=== PATIENT | female | born 1960 | race Hispanic/Latino ===

== ENCOUNTER → 2018-01-15 | Outpatient (CLI) | payer MEDICARE ==
[~2018-01-15] VITALS: Ht 165.1 cm; Wt 90.7 kg
[~2018-01-15] MED LIST: REGADENOSON 0.4 MG/5 ML PF SYG IVP SCH
== END | disposition home or self-care (01) ==
LOC: SHCH 08:09
PROVIDERS: ATTEND Internal Medicine Cardiovascular Disease
DX: I25.119 Atherosclerotic heart disease of native coronary artery with unspecified angina pectoris (principal)
CPT/HCPCS: 78452; 93017; 96374; A9500 ×2; J2785

== ENCOUNTER 2018-04-25 07:05 | Observation (INO) | payer MEDICARE ==
[2018-04-24 16:58] LABS: BASOPHILS % (AUTO) 0.3 % (0.0-5.0); EOSINOPHILS % (AUTO) 1.8 % (0.0-8.0); HEMATOCRIT 36.6 % (36-48); LYMPHOCYTES % (AUTO) 12.7 % (21.0-51.0); MEAN CORPUSCULAR HEMOGLOBIN 35.7 pg (27.0-33.0); MEAN CORPUSCULAR HGB CONC 32.9 g/dL (32.0-36.0); MEAN CORPUSCULAR VOLUME 108.5 fL (79-99); MONOCYTES % (AUTO) 4.8 % (3.0-13.0); NEUTROPHILS % (AUTO) 80.4 % (40.0-77.0); NUCLEATED RED BLOOD CELLS 0.1 % (0.0-0.19); PLATELET COUNT (AUTO) 126 K/uL (130-400); RED BLOOD CELL COUNT(AUTO) 3.38 MIL/uL (4.00-5.50); RED CELL DISTRIBUTION WIDTH 15.3 % (11.0-15.5); WHITE BLOOD COUNT (AUTO) 8.2 K/uL (4.8-10.8)
[2018-04-24 17:10] LABS: CREATININE 5.4 mg/dL (0.5-1.5); POTASSIUM 4.3 mmol/L (3.5-5.1)
[2018-04-24 17:13] LABS: INR 1.17 (0.85-1.15); PROTHROMBIN TIME 12.2 SEC (9.6-11.6)
[~2018-04-25] VITALS: Ht 160 cm; Wt 91.4 kg
[2018-04-25] VITALS (12 sets, daily range): BP systolic 90–126; BP diastolic 50–88
[~2018-04-25 07:05] MED LIST changes: +ALLO100T PO; +ASPI-1012 PO; +BIOT5000 PO; +CETI-101 PO; +CHOL500050 PO; +CINA30 PO; +DICY20TA11 PO; +DOCU50CA13 PO; +ENAL20TA PO; +ESOM40CA54 PO; +FOLI0.4T2 PO; +FOLI1TAB85 PO; +HYDR-4060 PO; +LEVE500T19 PO; +LEVE750T10 PO; +METO-391 PO; +PRED1TAB PO; -REGADENOSON 0.4 MG/5 ML PF SYG IVP SCH; +ROSU5TAB11 PO; +SERT50TA12 PO; +SEVE800T7 PO; +SODIUM CHLORIDE 0.9% 500ML 500 ML IV SCH; +WARF4TAB72 PO
[2018-04-25] MEDS ORDERED: SODIUM CHLORIDE 0.9% 1000ML 1,000 ML IV ONE (08:48)
[2018-04-25] MEDS ORDERED: ACETAMINOPHEN 325 MG TAB ONE (08:56)
[2018-04-25] MEDS ORDERED: ACETAMINOPHEN 325 MG TAB PO SCH (09:00)
[2018-04-25] MEDS ORDERED: IOHEXOL-350 50ML VIAL IV ONE (09:31)
[2018-04-25] MEDS ORDERED: NITROGLYCERIN 5 MG/ML 10 ML VIAL IV ONE (09:31)
[2018-04-25] MEDS ORDERED: IOHEXOL 350 MG/ML 100ML INFUS..BTL IV ONE ×2 (09:31→10:48)
[2018-04-25] MEDS ORDERED: SODIUM BICARB 50MEQ 50ML VIAL ONE (09:31)
[2018-04-25] MEDS ORDERED: LIDOCAINE HCL-MPF 2% 5ML VIAL ONE (09:31)
[2018-04-25] MEDS ORDERED: HEPARIN SODIUM 1000UNIT/ML 10ML VIAL ONE (09:32)
[2018-04-25] MEDS ORDERED: MEPERIDINE-PF 25 MG/ML SYG ONE ×2 (10:24→10:31)
[2018-04-25] MEDS ORDERED: MIDAZOLAM HCL 1 MG/ML 2ML VIAL ONE ×2 (10:24→10:30)
[2018-04-25] MEDS ORDERED: ASPIRIN 325MG EC TAB 325 MG TABLET.DR PO ONE (11:07)
[2018-04-25] MEDS ORDERED: CLOPIDOGREL BISULFATE 300 MG TAB ONE (11:07)
[2018-04-25] MEDS ORDERED: HYDROCODONE/ACETAMINOPHEN 5/325 MG TAB PO PRN (11:30)
[2018-04-25] MEDS ORDERED: TEMAZEPAM 30 MG CAP PO PRN (11:30)
[2018-04-25] MEDS ORDERED: CETIRIZINE HCL 5 MG TABLET PO PRN (11:30)
[2018-04-25] MEDS ORDERED: DICYCLOMINE HCL 20 MG TAB PO PRN (11:30)
[2018-04-25] MEDS ORDERED: ACETAMINOPHEN-CODEINE 300/30MG TAB PO PRN ×2 (11:30)
[2018-04-25] MEDS ORDERED: ONDANSETRON HCL 4 MG/2 ML VIAL IVP PRN (11:30)
[2018-04-25] MEDS ORDERED: CLOP75TA14 PO (11:40)
[2018-04-25] MEDS: SEVELAMER HCL 800 MG TABLET PO SCH ×2 (12:00→16:28)
[2018-04-25] MEDS ORDERED: LEVETIRACETAM 500 MG TABLET PO SCH (13:30)
[2018-04-25] MEDS ORDERED: CLOPIDOGREL BISULFATE 300 MG TAB PO SCH (13:30)
[2018-04-25] MEDS ORDERED: WARFARIN SODIUM 10 MG TABLET PO SCH (13:30)
[2018-04-25] MEDS: METOPROLOL TARTRATE 50 MG TAB PO SCH (21:00)
[2018-04-25] MEDS ORDERED: CINACALCET HCL 30 MG TAB PO SCH (21:00)
[2018-04-25] MEDS ORDERED: PREDNISONE 1 MG TAB PO SCH (21:00)
[2018-04-25] MEDS ORDERED: SERTRALINE HCL 50 MG TABLET PO SCH (21:00)
[2018-04-25] MEDS: DOCUSATE SODIUM 100 MG CAP PO SCH (21:40)
[2018-04-25] MEDS: ENALAPRIL MALEATE 10 MG TABLET PO SCH (21:41)
[2018-04-26 04:00] VITALS: BP 131/78
[2018-04-26 04:23] LABS: HEMATOCRIT 29.7 % (36-48); MEAN CORPUSCULAR HEMOGLOBIN 36.7 pg (27.0-33.0); MEAN CORPUSCULAR HGB CONC 33.7 g/dL (32.0-36.0); NUCLEATED RED BLOOD CELLS 0.1 % (0.0-0.19); PLATELET COUNT (AUTO) 89 K/uL (130-400); RED BLOOD CELL COUNT(AUTO) 2.72 MIL/uL (4.00-5.50); RED CELL DISTRIBUTION WIDTH 15.3 % (11.0-15.5); WHITE BLOOD COUNT (AUTO) 5.3 K/uL (4.8-10.8)
[2018-04-26 04:31] LABS: INR 1.02 (0.85-1.15); PARTIAL THROMBOPLASTIN TIME 42.2 SEC (26.3-35.5); PROTHROMBIN TIME 10.7 SEC (9.6-11.6)
[2018-04-26 04:41] LABS: POTASSIUM 5.6 mmol/L (3.5-5.1)
[2018-04-26 05:06] LABS: CREATININE 8.1 mg/dL (0.5-1.5)
[2018-04-26 07:00] VITALS: BP 114/72
[2018-04-26] MEDS ORDERED: WARFARIN SODIUM 2 MG TAB PO SCH (07:45)
[2018-04-26] MEDS ORDERED: CLOPIDOGREL BISULFATE 75 MG TAB PO SCH ×2 (09:00)
[2018-04-26] MEDS ORDERED: BIOTIN PO SCH (09:00)
[2018-04-26] MEDS ORDERED: ASPIRIN 81MG TAB.CHEW PO SCH ×2 (09:00)
[2018-04-26] MEDS ORDERED: LEVETIRACETAM 500 MG TABLET PO SCH (09:00)
[2018-04-26] MEDS ORDERED: ATORVASTATIN CALCIUM 10 MG TABLET PO SCH (09:00)
[2018-04-26] MEDS ORDERED: ALLOPURINOL 100 MG TABLET PO SCH (09:00)
[2018-04-26] MEDS ORDERED: FOLIC ACID PO SCH (09:00)
[2018-04-26] MEDS ORDERED: FOLIC ACID/VITAMIN B COMP W-C 1 MG CAPSULE PO SCH (09:00)
[2018-04-26] MEDS ORDERED: PANTOPRAZOLE SODIUM 40 MG TABLET.DR PO SCH (09:00)
[2018-04-26] MEDS ORDERED: SODIUM CHLORIDE 0.9% 1000ML 1,000 ML IV ONE (09:10)
[2018-04-26 11:00] VITALS: BP 124/83
[2018-04-26 13:20] VITALS: BP 103/72
[2018-04-26] MEDS: DOCUSATE SODIUM 100 MG CAP PO SCH (13:46)
[2018-04-26] MEDS: ENALAPRIL MALEATE 10 MG TABLET PO SCH (13:49)
[2018-04-26] MEDS: METOPROLOL TARTRATE 50 MG TAB PO SCH (13:49)
[2018-05-02] MEDS ORDERED: ERGOCALCIFEROL (VITAMIN D2) 50,000 UNIT CAPSULE PO SCH (09:00)
== END 2018-04-26 15:25 | disposition home or self-care (01) ==
LOC: DAH 07:05 → 2AH 07:06 → DAH 07:06
PROVIDERS: ADMIT Internal Medicine Cardiovascular Disease; ATTEND Internal Medicine Cardiovascular Disease
DX: I25.10 Atherosclerotic heart disease of native coronary artery without angina pectoris (principal); E11.22 Type 2 diabetes mellitus with diabetic chronic kidney disease; E11.51 Type 2 diabetes mellitus with diabetic peripheral angiopathy without gangrene; I12.0 Hypertensive chronic kidney disease with stage 5 chronic kidney disease or end stage renal disease; N18.6 End stage renal disease; I35.2 Nonrheumatic aortic (valve) stenosis with insufficiency; E78.5 Hyperlipidemia, unspecified; I42.9 Cardiomyopathy, unspecified; Z86.73 Personal history of transient ischemic attack (TIA), and cerebral infarction without residual deficits; Z95.1 Presence of aortocoronary bypass graft; Z95.2 Presence of prosthetic heart valve; Z99.2 Dependence on renal dialysis; Z90.710 Acquired absence of both cervix and uterus; Z79.52 Long term (current) use of systemic steroids; Z79.01 Long term (current) use of anticoagulants
CPT/HCPCS: 36415 ×3; 71045; 80048 ×2; 80061; 82948; 84100; 85025; 85027; 85347; 85610 ×2; 85730 ×2; 93005 ×2; 93455; A4606; C1760 ×2; C1769 ×2; C1874; C1887; C1894 ×2; C9600; G0378 ×32; J1644 ×2; J2175 ×2; J2250 ×2; J3490 ×3; J7030 ×2; J7512; Q9965; Q9967 ×3; 90935; 99156; 99157

== ENCOUNTER → 2019-03-06 | Outpatient (CLI) | payer MEDICARE ==
[~2019-03-06] MED LIST changes: +CLOP75TA14 PO; -ROSU5TAB11 PO; +ROSU5TAB12 PO; -SODIUM CHLORIDE 0.9% 500ML 500 ML IV SCH
== END | disposition home or self-care (01) ==
LOC: SHCH 12:29
PROVIDERS: ATTEND Internal Medicine Cardiovascular Disease
DX: I11.9 Hypertensive heart disease without heart failure (principal); I65.23 Occlusion and stenosis of bilateral carotid arteries; I25.10 Atherosclerotic heart disease of native coronary artery without angina pectoris
CPT/HCPCS: 93306; 93880

== ENCOUNTER → 2019-03-18 | Outpatient (CLI) | payer MEDICARE ==
[~2019-03-18] VITALS: Ht 165.1 cm; Wt 90.7 kg
[2019-03-18] MEDS: REGADENOSON 0.4 MG/5 ML PF SYG IVP SCH (12:10)
== END | disposition home or self-care (01) ==
LOC: SHCH 08:31
PROVIDERS: ATTEND Internal Medicine Cardiovascular Disease
DX: I25.89 Other forms of chronic ischemic heart disease (principal)
CPT/HCPCS: 78452; 93017; 96374; A9500 ×2; J2785

== ENCOUNTER 2019-05-15 06:08 | Day surgery (SDC) | payer MEDICARE ==
[2019-05-13 09:57] LABS: BASOPHILS % (AUTO) 0.8 % (0.0-5.0); EOSINOPHILS % (AUTO) 3.1 % (0.0-8.0); HEMATOCRIT 34.6 % (36-48); LYMPHOCYTES % (AUTO) 15.3 % (21.0-51.0); MEAN CORPUSCULAR HGB CONC 33.1 g/dL (32.0-36.0); MEAN CORPUSCULAR VOLUME 111.7 fL (79-99); MONOCYTES % (AUTO) 6.5 % (3.0-13.0); NEUTROPHILS % (AUTO) 74.3 % (40.0-77.0); NUCLEATED RED BLOOD CELLS 0.1 % (0.0-0.19); PLATELET COUNT (AUTO) 206 K/uL (130-400); RED BLOOD CELL COUNT(AUTO) 3.09 MIL/uL (4.00-5.50); RED CELL DISTRIBUTION WIDTH 15.2 % (11.0-15.5); WHITE BLOOD COUNT (AUTO) 6.2 K/uL (4.8-10.8)
[2019-05-13 10:02] VITALS: BP 140/70
[2019-05-13 10:02] LABS: APPEARANCE,URINE CLEAR (CLEAR); BILIRUBIN,URINE NEGATIVE (NEGATIVE); COLOR,URINE YELLOW (YELLOW); GLUCOSE, URINE (UA) NEGATIVE (NEGATIVE); KETONES,URINE NEGATIVE (NEGATIVE); LEUKOCYTE ESTERASE ,URINE MODERATE (NEGATIVE); NITRATE,URINE NEGATIVE (NEGATIVE); OCCULT BLOOD,URINE TRACE-INTACT (NEGATIVE); PROTEIN,URINE 100 mg/dL (NEGATIVE); UROBILINOGEN,URINE 0.2 mg/dL (0.2-1.0)
[2019-05-13 10:03] LABS: CREATININE 7.7 mg/dL (0.5-1.5); POTASSIUM 4.5 mmol/L (3.5-5.1)
[2019-05-13 10:07] LABS: INR 2.76 (0.85-1.15); PARTIAL THROMBOPLASTIN TIME 53.5 SEC (26.3-35.5); PROTHROMBIN TIME 27.9 SEC (9.6-11.6)
[2019-05-13 10:18] LABS: BACTERIA,URINE Rare /HPF (None Seen); RBC,URINE 0-1 /HPF (0-1); SQUAMOUS EPITHELIAL CELL,UR Moderate /HPF (0-2)
--- NOTE | 2019-05-14 09:39 | NUR ---
LABS ABNORMAL LABS REPORTED TO KATE DELATORRE, FURTHER ORDERS GIVEN
[~2019-05-15] VITALS: Ht 165.1 cm; Wt 72.1 kg
[2019-05-15] VITALS (10 sets, daily range): BP systolic 118–159; BP diastolic 71–99
[~2019-05-15 06:08] MED LIST changes: +ACETAMINOPHEN 325 MG TAB PO PRN; +AMLO5TAB9 PO; -ASPI-1012 PO; -CETI-101 PO; -CHOL500050 PO; -CINA30 PO; -DICY20TA11 PO; +DOCU-272 PO; -DOCU50CA13 PO; +ERGO500014 PO; +SODIUM CHLORIDE 0.9% 500ML 500 ML IV SCH
[2019-05-15 07:54] LABS: INR 1.98 (0.85-1.15); PROTHROMBIN TIME 20.3 SEC (9.6-11.6)
[2019-05-15] MEDS ORDERED: SODIUM CHLORIDE 0.9% 1000ML 1,000 ML IV ONE (08:02)
[2019-05-15] MEDS ORDERED: IOHEXOL-350 50ML VIAL IV ONE ×2 (09:26→10:38)
[2019-05-15] MEDS ORDERED: HEPARIN SODIUM 1000UNIT/ML 10ML VIAL ONE (09:26)
[2019-05-15] MEDS ORDERED: LIDOCAINE HCL 2% 20ML ONE (09:26)
[2019-05-15] MEDS ORDERED: IOHEXOL-350 75 ML VIAL IV ONE (09:26)
[2019-05-15] MEDS ORDERED: NITROGLYCERIN 5 MG/ML 10 ML VIAL IV ONE (09:26)
[2019-05-15] MEDS ORDERED: MEPERIDINE-PF 25 MG/ML SYG ONE ×3 (10:08→10:47)
[2019-05-15] MEDS ORDERED: MIDAZOLAM HCL 1 MG/ML 2ML VIAL ONE ×3 (10:08→10:47)
[2019-05-15] MEDS ORDERED: ADENOSINE 90MG/30ML VIAL IV ONE (10:31)
[2019-05-15] MEDS ORDERED: SODIUM CHLORIDE 0.9% 10 ML VIAL IVP SCH (11:15)
[2019-05-15] MEDS ORDERED: DEXTROSE 50%-WATER 50 ML DISP.SYRIN IV PRN (11:15)
[2019-05-15] MEDS ORDERED: INSULIN HUMULIN R 100 UNIT/ML 3ML SQ SCH (11:30)
--- NOTE | 2019-05-15 14:06 | NUR ---
DIET PT TOLERATED DIET WELL, SON ASSISTED PT.
--- NOTE | 2019-05-15 14:25 | NUR ---
REPORT RECEIVED REPORT FROM PRAVEEN CALIXTO. PT LYING IN BED. SITE TO RIGHT GROIN SOFT TO TOUCH. DRY AND INTACT. INSTRUCTED PT AND FAMILY ON IMPORTANCE OF LYING IN BED AND NOT LIFTING HEAD UP OFF OF BED. BOTH VERBALIZED UNDERSTANDING.
--- NOTE | 2019-05-15 15:30 | NUR ---
DISCHARGE ORAL AND WRITTEN DISCHARGE INSTRUCTIONS GIVEN TO PT AND PTS SON BY PRAVEEN CALIXTO. NO OTHER QUESTIONS AT ALL. PT SITE TO RIGHT GROIN SOFT TO TOUCH. DRY AND INTACT. NO BLEEDING, OOZING NOTED TO SITE.
== END 2019-05-15 15:50 | disposition home or self-care (01) ==
LOC: DAH 06:08
PROVIDERS: ATTEND Internal Medicine Cardiovascular Disease
DX: I25.118 Atherosclerotic heart disease of native coronary artery with other forms of angina pectoris (principal); N18.6 End stage renal disease; Z79.899 Other long term (current) drug therapy; Z79.01 Long term (current) use of anticoagulants; Z88.2 Allergy status to sulfonamides; Z88.1 Allergy status to other antibiotic agents; Z91.018 Allergy to other foods; Z82.49 Family history of ischemic heart disease and other diseases of the circulatory system; Z83.3 Family history of diabetes mellitus; Z82.3 Family history of stroke
CPT/HCPCS: 36415 ×2; 71045; 80048; 81001; 85025; 85610 ×2; 85730; 93005; 93454; 93571; A4215; A4216; A4221; A4222; A4223 ×3; A4606; C1760; C1769 ×2; C1887; C1894; J0153; J1644 ×2; J2175 ×3; J2250 ×3; J3490 ×2; J7030; Q9967 ×3; 99156; 99157

== ENCOUNTER → 2019-07-07 | Outpatient (CLI) | payer MEDICARE ==
[~2019-07-07] MED LIST changes: -ACETAMINOPHEN 325 MG TAB PO PRN; -SODIUM CHLORIDE 0.9% 500ML 500 ML IV SCH
== END | disposition home or self-care (01) ==
LOC: SHCH 10:53
PROVIDERS: ATTEND Internal Medicine Cardiovascular Disease
DX: I35.1 Nonrheumatic aortic (valve) insufficiency (principal); I51.7 Cardiomegaly
CPT/HCPCS: 93306

== ENCOUNTER → 2020-06-24 | Outpatient (CLI) | payer MEDICARE ==
[~2020-06-24] MED LIST changes: +AMLO-257 PO; -AMLO5TAB9 PO; -ENAL20TA PO; +ENAL20TA18 PO
== END | disposition home or self-care (01) ==
LOC: SHCH 10:00
PROVIDERS: ATTEND Internal Medicine Cardiovascular Disease
DX: I11.9 Hypertensive heart disease without heart failure (principal)
CPT/HCPCS: 93306; 93356

== ENCOUNTER → 2021-05-19 | Outpatient (CLI) | payer MEDICARE ==
[~2021-05-19] MED LIST changes: -DOCU-272 PO; +DOCU-280 PO; -FOLI0.4T2 PO; +FOLI0.4T6 PO; +SERT-439 PO; -SERT50TA12 PO
== END | disposition home or self-care (01) ==
LOC: RAH 10:04
PROVIDERS: ATTEND Internal Medicine Cardiovascular Disease
DX: I63.441 Cerebral infarction due to embolism of right cerebellar artery (principal)
CPT/HCPCS: 93880

== ENCOUNTER 2021-06-21 06:00 | Day surgery (SDC) | payer MEDICARE ==
[2021-06-17 09:41] LABS: BASOPHILS % (AUTO) 0.2 % (0.0-5.0); EOSINOPHILS % (AUTO) 3.3 % (0.0-8.0); HEMATOCRIT 36.7 % (36-48); LYMPHOCYTES % (AUTO) 21.8 % (21.0-51.0); MEAN CORPUSCULAR HEMOGLOBIN 35.9 pg (27.0-33.0); MEAN CORPUSCULAR HGB CONC 31.9 g/dL (32.0-36.0); MEAN CORPUSCULAR VOLUME 112.6 fL (79-99); MONOCYTES % (AUTO) 6.8 % (3.0-13.0); NEUTROPHILS % (AUTO) 67.7 % (40.0-77.0); PLATELET COUNT (AUTO) 185 K/uL (130-400); RED BLOOD CELL COUNT(AUTO) 3.26 MIL/uL (4.00-5.50); RED CELL DISTRIBUTION WIDTH 13.8 % (11.0-15.5); WHITE BLOOD COUNT (AUTO) 6.3 K/uL (4.8-10.8)
[2021-06-17 09:52] LABS: INR 3.47 (0.85-1.15); PROTHROMBIN TIME 33.8 SEC (9.6-11.6)
[2021-06-17 09:53] LABS: PARTIAL THROMBOPLASTIN TIME 60.4 SEC (26.3-35.5)
[2021-06-17 10:15] LABS: POTASSIUM 4.7 mmol/L (3.5-5.1)
[2021-06-17 10:24] LABS: CREATININE 9.8 mg/dL (0.5-1.5)
[2021-06-18 14:16] VITALS: BP 186/96
[~2021-06-21] VITALS: Ht 165.1 cm; Wt 90.5 kg
[~2021-06-21 06:00] MED LIST changes: +0.9% NACL 500ML IV.SOLN 500 ML IV SCH; +BENZ-70 PO; +DICY20TA3 PO; +DIPH25 PO; -DOCU-280 PO; -ERGO500014 PO; +ESOM20CA31 PO; -HYDR-4060 PO; +IRON PO; +LEVE250T2 PO; -LEVE750T10 PO; +MIDO5TAB4 PO; +OMEGA 3 PO; +PROC10TA13 PO; -SEVE800T7 PO; +TEMA30CA PO; +VITAMIN B 12 PO; +VITAMIN D PO
[2021-06-21 06:51] VITALS: BP 170/98
[2021-06-21] MEDS ORDERED: BUPIVACAINE/PF 0.25% 30ML VIAL IJ ONE (07:15)
[2021-06-21] MEDS ORDERED: LIDOCAINE HCL 1% MDV 50ML VIAL ONE (07:15)
[2021-06-21] MEDS ORDERED: CEFAZOLIN SODIUM 1 GM VIAL ONE (07:15)
[2021-06-21] MEDS ORDERED: 0.9%NACL 1000ML 1,000 ML IV ONE (07:19)
[2021-06-21 07:25] LABS: INR 1.17 (0.85-1.15); PROTHROMBIN TIME 12.6 SEC (9.6-11.6)
[2021-06-21] MEDS ORDERED: MIDAZOLAM HCL 1 MG/ML 2ML VIAL ONE ×2 (07:25→07:43)
[2021-06-21] MEDS ORDERED: MEPERIDINE-PF 25 MG/ML SYG ONE ×2 (07:25→07:43)
[2021-06-21 07:27] LABS: PARTIAL THROMBOPLASTIN TIME 38.2 SEC (26.3-35.5)
[2021-06-21] MEDS ORDERED: IODIXANOL 320 MG/ML 100 ML VIAL ONE (07:35)
[2021-06-21 08:20] VITALS: BP 153/91
[2021-06-21 08:35] VITALS: BP 149/89
[2021-06-21 08:50] VITALS: BP 151/87
== END 2021-06-21 09:53 | disposition home or self-care (01) ==
LOC: DAH 06:00
PROVIDERS: ATTEND Internal Medicine Cardiovascular Disease
DX: I42.8 Other cardiomyopathies (principal); I82.B21 Chronic embolism and thrombosis of right subclavian vein; Z20.822 Contact with and (suspected) exposure to COVID-19; I25.10 Atherosclerotic heart disease of native coronary artery without angina pectoris; E66.9 Obesity, unspecified; N18.6 End stage renal disease; Z95.1 Presence of aortocoronary bypass graft; Z95.810 Presence of automatic (implantable) cardiac defibrillator; Z98.890 Other specified postprocedural states; Z86.73 Personal history of transient ischemic attack (TIA), and cerebral infarction without residual deficits; Z90.49 Acquired absence of other specified parts of digestive tract; Z90.89 Acquired absence of other organs; Z90.710 Acquired absence of both cervix and uterus; Z99.2 Dependence on renal dialysis
CPT/HCPCS: 36005; 36415 ×2; 75820; 80048; 85025; 85610 ×2; 85730 ×2; 93005; A4215 ×2; A4216; A4221; A4222; A4223 ×3; A4606; A4657; A4663; C1894; J0690; J2175 ×2; J2250 ×2; J3490 ×2; J7030; Q9967; 99156

== ENCOUNTER 2021-08-23 05:54 | Day surgery (SDC) | payer MEDICARE ==
[2021-08-20 08:11] VITALS: BP 145/83
[2021-08-20 11:12] LABS: BASOPHILS % (AUTO) 0.5 % (0.0-5.0); EOSINOPHILS % (AUTO) 3.9 % (0.0-8.0); HEMATOCRIT 32.1 % (36-48); LYMPHOCYTES % (AUTO) 21.3 % (21.0-51.0); MEAN CORPUSCULAR HEMOGLOBIN 36.1 pg (27.0-33.0); MEAN CORPUSCULAR VOLUME 109.2 fL (79-99); MONOCYTES % (AUTO) 7.4 % (3.0-13.0); NEUTROPHILS % (AUTO) 66.6 % (40.0-77.0); PLATELET COUNT (AUTO) 140 K/uL (130-400); RED BLOOD CELL COUNT(AUTO) 2.94 MIL/uL (4.00-5.50); RED CELL DISTRIBUTION WIDTH 13.4 % (11.0-15.5); WHITE BLOOD COUNT (AUTO) 6.3 K/uL (4.8-10.8)
[2021-08-20 11:26] LABS: CREATININE 6.8 mg/dL (0.5-1.5); POTASSIUM 4.2 mmol/L (3.5-5.1)
[2021-08-20 11:50] LABS: INR 1.15 (0.85-1.15); PROTHROMBIN TIME 12.4 SEC (9.6-11.6)
[2021-08-20 11:51] LABS: PARTIAL THROMBOPLASTIN TIME 53.1 SEC (26.3-35.5)
[2021-08-20 14:26] VITALS: BP 144/80
[~2021-08-23] VITALS: Ht 165.1 cm; Wt 91.0 kg
[2021-08-23] VITALS (25 sets, daily range): BP systolic 107–164; BP diastolic 40–92
[~2021-08-23 05:54] MED LIST changes: -0.9% NACL 500ML IV.SOLN 500 ML IV SCH
[2021-08-23] MEDS ORDERED: 0.9%NACL 1000ML 1,000 ML IV ONE (06:38)
[2021-08-23] MEDS ORDERED: BUPIVACAINE/PF 0.25% 30ML VIAL IJ ONE (07:16)
[2021-08-23] MEDS ORDERED: CEFAZOLIN SODIUM 1 GM VIAL ONE (07:16)
[2021-08-23] MEDS ORDERED: LIDOCAINE HCL 1% MDV 50ML VIAL ONE (07:17)
[2021-08-23 07:23] LABS: INR 1.05 (0.85-1.15); PROTHROMBIN TIME 11.4 SEC (9.6-11.6)
[2021-08-23 07:24] LABS: PARTIAL THROMBOPLASTIN TIME 49.5 SEC (26.3-35.5)
[2021-08-23] MEDS ORDERED: PROPOFOL 10 MG/ML 20ML VIAL IV ONE (07:39)
[2021-08-23] MEDS ORDERED: LIDOCAINE PF 100MG/5ML (2%) SYRINGE 5ML ONE (07:39)
[2021-08-23] MEDS ORDERED: MIDAZOLAM HCL 1 MG/ML 2ML VIAL ONE (07:39)
[2021-08-23] MEDS ORDERED: ROCURONIUM BROMIDE 10MG/1ML 5ML VL ONE (07:48)
[2021-08-23] MEDS ORDERED: NOREPINEPHRINE BITARTRATE 1 MG/1 ML ML IV ONE (07:48)
[2021-08-23] MEDS ORDERED: PHENYLEPHRINE HCL 10 MG/ML 5ML VIAL IV ONE (08:08)
[2021-08-23] MEDS ORDERED: FENTANYL CITRATE PF 50 MCG/1 ML 2ML VIAL ONE ×2 (08:08→09:38)
[2021-08-23] MEDS ORDERED: GLYCOPYRROLATE 1 MG/5 ML SYRINGE ONE (08:14)
[2021-08-23] MEDS ORDERED: EPINEPHRINE PF 1MG AMP ONE (08:14)
[2021-08-23] MEDS ORDERED: OCTYL 2-CYANOACRYLATE 1 EACH TP ONE (08:52)
[2021-08-23] MEDS ORDERED: THROMBIN-JMI 5000 UNIT/VIAL TP ONE (09:04)
[2021-08-23] MEDS ORDERED: NEOSTIGMINE 5MG/5ML SYR IV ONE (09:05)
[2021-08-23] MEDS ORDERED: ACETAMINOPHEN WITH CODEINE 1 TAB TAB PO PRN ×2 (10:00)
[2021-08-23] MEDS ORDERED: ONDANSETRON 4MG INJ IV PRN (10:00)
== END 2021-08-23 19:10 | disposition home or self-care (01) ==
LOC: DAH 05:54
PROVIDERS: ATTEND Internal Medicine Cardiovascular Disease
DX: I25.5 Ischemic cardiomyopathy (principal); I49.9 Cardiac arrhythmia, unspecified; I25.10 Atherosclerotic heart disease of native coronary artery without angina pectoris; N18.9 Chronic kidney disease, unspecified; Z79.01 Long term (current) use of anticoagulants; Z98.890 Other specified postprocedural states; Z90.710 Acquired absence of both cervix and uterus; Z90.49 Acquired absence of other specified parts of digestive tract; Z79.899 Other long term (current) drug therapy; Z86.73 Personal history of transient ischemic attack (TIA), and cerebral infarction without residual deficits; Z98.891 History of uterine scar from previous surgery; Z95.5 Presence of coronary angioplasty implant and graft; Z88.1 Allergy status to other antibiotic agents; Z91.014 Allergy to mammalian meats; Z95.1 Presence of aortocoronary bypass graft
CPT/HCPCS: 33270; 36415 ×2; 71046; 80048; 85025; 85610 ×2; 85730 ×2; 93005 ×2; A4215; A4216; A4221; A4222; A4223 ×3; A4606; A4663; C1722; C1894; C1896; J0171; J0690; J2001; J2250; J2370; J2704; J2710; J3010 ×2; J3490 ×6; J7030

== ENCOUNTER 2022-01-14 11:00 | Day surgery (SDC) | payer MEDICARE ==
[2022-01-07 14:42] LABS: INR 2.12 (0.85-1.15); PROTHROMBIN TIME 22.1 SEC (9.6-11.6)
[2022-01-11 10:55] VITALS: BP 185/99
[2022-01-12 07:48] LABS: BASOPHILS % (AUTO) 0.3 % (0.0-5.0); EOSINOPHILS % (AUTO) 4.4 % (0.0-8.0); HEMATOCRIT 29.2 % (36-48); MEAN CORPUSCULAR HEMOGLOBIN 34.7 pg (27.0-33.0); MEAN CORPUSCULAR HGB CONC 31.5 g/dL (32.0-36.0); MEAN CORPUSCULAR VOLUME 110.2 fL (79-99); MONOCYTES % (AUTO) 6.3 % (3.0-13.0); NEUTROPHILS % (AUTO) 75.6 % (40.0-77.0); NUCLEATED RED BLOOD CELLS 0.2 % (0.0-0.19); PLATELET COUNT (AUTO) 79 K/uL (130-400); RED BLOOD CELL COUNT(AUTO) 2.65 MIL/uL (4.00-5.50); RED CELL DISTRIBUTION WIDTH 16.7 % (11.0-15.5); WHITE BLOOD COUNT (AUTO) 9.5 K/uL (4.8-10.8)
[2022-01-12 07:49] VITALS: BP 166/93
[2022-01-12 08:11] LABS: CREATININE 7.1 mg/dL (0.5-1.5); POTASSIUM 5.9 mmol/L (3.5-5.1)
[2022-01-12 08:13] LABS: INR 1.21 (0.85-1.15)
[2022-01-12 08:14] LABS: PARTIAL THROMBOPLASTIN TIME 48.3 SEC (26.3-35.5)
[~2022-01-14] VITALS: Ht 165.1 cm; Wt 89.8 kg
[~2022-01-14 11:00] MED LIST changes: +0.9%NACL 1000ML 1,000 ML IV ONE; +KAYEXALATE 15GM/60ML PO NR
[2022-01-14 12:00] VITALS: BP 182/75
[2022-01-14 12:47] LABS: HEMATOCRIT 28.5 % (36-48); MEAN CORPUSCULAR HEMOGLOBIN 34.3 pg (27.0-33.0); MEAN CORPUSCULAR HGB CONC 30.5 g/dL (32.0-36.0); MEAN CORPUSCULAR VOLUME 112.2 fL (79-99); PLATELET COUNT (AUTO) 68 K/uL (130-400); RED BLOOD CELL COUNT(AUTO) 2.54 MIL/uL (4.00-5.50); RED CELL DISTRIBUTION WIDTH 16.4 % (11.0-15.5); WHITE BLOOD COUNT (AUTO) 9.2 K/uL (4.8-10.8)
[2022-01-14 13:03] LABS: CREATININE 6.7 mg/dL (0.5-1.5); INR 1.18 (0.85-1.15); POTASSIUM 4.4 mmol/L (3.5-5.1); PROTHROMBIN TIME 12.7 SEC (9.6-11.6)
[2022-01-14 13:04] LABS: PARTIAL THROMBOPLASTIN TIME 43.9 SEC (26.3-35.5)
[2022-01-14] MEDS ORDERED: IOHEXOL-350 50ML VIAL IV ONE ×2 (13:33→14:31)
[2022-01-14] MEDS ORDERED: MIDAZOLAM HCL 1 MG/ML 2ML VIAL ONE (13:34)
[2022-01-14] MEDS ORDERED: FENTANYL CITRATE PF 50 MCG/1 ML 2ML VIAL ONE (13:34)
[2022-01-14] MEDS ORDERED: LIDOCAINE HCL 1% MDV 50ML VIAL ONE (13:34)
[2022-01-14] MEDS ORDERED: HEPARIN 10,000 UNIT/10ML (1,000 UNIT/ML) VIAL ONE (14:20)
[2022-01-14 15:15] VITALS: BP 135/81
[2022-01-14 15:30] VITALS: BP 136/82
[2022-01-14 15:45] VITALS: BP 138/84
== END 2022-01-14 16:00 | disposition home or self-care (01) ==
LOC: DAH 11:00
PROVIDERS: ATTEND Internal Medicine Hematology & Oncology
DX: T82.591A Other mechanical complication of surgically created arteriovenous shunt, initial encounter (principal); E11.22 Type 2 diabetes mellitus with diabetic chronic kidney disease; I13.2 Hypertensive heart and chronic kidney disease with heart failure and with stage 5 chronic kidney disease, or end stage renal disease; I50.9 Heart failure, unspecified; N18.6 End stage renal disease; E78.5 Hyperlipidemia, unspecified; I25.10 Atherosclerotic heart disease of native coronary artery without angina pectoris; D68.62 Lupus anticoagulant syndrome; Z95.1 Presence of aortocoronary bypass graft; Z98.890 Other specified postprocedural states; Z82.49 Family history of ischemic heart disease and other diseases of the circulatory system; Z83.3 Family history of diabetes mellitus; Z79.01 Long term (current) use of anticoagulants; Z99.2 Dependence on renal dialysis
CPT/HCPCS: 36415 ×3; 36902; 80048 ×2; 85025; 85027; 85610 ×3; 85730 ×2; A4215; A4216; A4221; A4222; A4223 ×3; A4606; A4663; C1725; C1769; C1894 ×2; J1644 ×2; J2250; J3010; J3490; J7030; Q9967 ×2; 36907

== ENCOUNTER 2022-06-17 17:35 | Emergency (ER) | payer OTHER, MEDICARE ==
[~2022-06-17] VITALS: Ht 162.6 cm; Wt 90.7 kg
[~2022-06-17 17:35] MED LIST changes: -0.9%NACL 1000ML 1,000 ML IV ONE; -BIOT5000 PO; -DIPH25 PO; -ESOM20CA31 PO; -ESOM40CA54 PO; -FOLI0.4T6 PO; -IRON PO; -KAYEXALATE 15GM/60ML PO NR; -LEVE250T2 PO; -LEVE500T19 PO; -MIDO5TAB4 PO; -OMEGA 3 PO; -PROC10TA13 PO; -VITAMIN B 12 PO; -VITAMIN D PO
[2022-06-17 19:24] LABS: BASOPHILS % (AUTO) 0.4 % (0.0-5.0); HEMATOCRIT 28.9 % (36-48); LYMPHOCYTES % (AUTO) 13.7 % (21.0-51.0); MEAN CORPUSCULAR HEMOGLOBIN 35.4 pg (27.0-33.0); MEAN CORPUSCULAR HGB CONC 33.2 g/dL (32.0-36.0); MEAN CORPUSCULAR VOLUME 106.6 fL (79-99); MONOCYTES % (AUTO) 8.6 % (3.0-13.0); NEUTROPHILS % (AUTO) 69.1 % (40.0-77.0); PLATELET COUNT (AUTO) 161 K/uL (130-400); RED BLOOD CELL COUNT(AUTO) 2.71 MIL/uL (4.00-5.50); RED CELL DISTRIBUTION WIDTH 14.7 % (11.0-15.5); WHITE BLOOD COUNT (AUTO) 8.2 K/uL (4.8-10.8)
[2022-06-17 19:36] LABS: CREATININE 6.3 mg/dL (0.5-1.5); POTASSIUM 4.1 mmol/L (3.5-5.1)
[2022-06-17 19:45] LABS: ALBUMIN 3.7 g/dL (3.5-5.0); TOTAL PROTEIN, SERUM 7.6 g/dL (6.0-8.3)
[2022-06-17] MEDS ORDERED: ACETAMINOPHEN 325 MG TAB ONE (20:22)
[2022-06-17 20:46] VITALS: BP 132/85
== END 2022-06-17 20:49 | disposition home or self-care (01) ==
LOC: EDH 17:35
DX: R07.89 Other chest pain (principal); R42 Dizziness and giddiness; E11.9 Type 2 diabetes mellitus without complications; I10 Essential (primary) hypertension; Z79.52 Long term (current) use of systemic steroids; Z90.49 Acquired absence of other specified parts of digestive tract; Z95.810 Presence of automatic (implantable) cardiac defibrillator; Z88.2 Allergy status to sulfonamides; Z91.014 Allergy to mammalian meats; Z79.899 Other long term (current) drug therapy; V89.2XXA Person injured in unspecified motor-vehicle accident, traffic, initial encounter; Y93.89 Activity, other specified; Y92.89 Other specified places as the place of occurrence of the external cause; Y99.8 Other external cause status
CPT/HCPCS: 36415; 70450; 71045; 80053; 84484; 85025; 93005

== ENCOUNTER 2022-10-08 10:57 | Inpatient (IN) | payer MEDICARE ==
[~2022-10-08] VITALS: Ht 157.5 cm; Wt 78.7 kg
[2022-10-08] VITALS (17 sets, daily range): BP systolic 147–183; BP diastolic 68–107
[~2022-10-08 10:57] MED LIST changes: +BENZ-226 PO; -BENZ-70 PO; +CLOP-31 PO; -CLOP75TA14 PO; +HYDR-4060 PO; +LEVE250T2 PO; +LEVE500T19 PO; +PROC10TA13 PO; +SUMA100T16 PO; +VITAMIN B; +WARF3TAB59 PO; -WARF4TAB72 PO
[2022-10-08 11:46] LABS: BASOPHILS % (AUTO) 0.4 % (0.0-5.0); EOSINOPHILS % (AUTO) 3.5 % (0.0-8.0); HEMATOCRIT 34.2 % (36-48); LYMPHOCYTES % (AUTO) 8.1 % (21.0-51.0); MEAN CORPUSCULAR HEMOGLOBIN 36.2 pg (27.0-33.0); MEAN CORPUSCULAR VOLUME 109.6 fL (79-99); MONOCYTES % (AUTO) 5.8 % (3.0-13.0); NEUTROPHILS % (AUTO) 81.8 % (40.0-77.0); PLATELET COUNT (AUTO) 55 K/uL (130-400); RED BLOOD CELL COUNT(AUTO) 3.12 MIL/uL (4.00-5.50); RED CELL DISTRIBUTION WIDTH 14.9 % (11.0-15.5); WHITE BLOOD COUNT (AUTO) 7.5 K/uL (4.8-10.8)
[2022-10-08 11:47] LABS: ALBUMIN 3.7 g/dL (3.5-5.0); POTASSIUM 4.6 mmol/L (3.5-5.1)
[2022-10-08 11:50] LABS: CREATININE 9.3 mg/dL (0.5-1.5)
[2022-10-08 12:24] LABS: PLATELET MORPHOLOGY COMMENT DECREASED
[2022-10-08] MEDS ORDERED: PANTOPRAZOLE 40 MG TAB DR PO SCH (14:30)
[2022-10-08] MEDS ORDERED: PHARMACY COMMUNICATION MISC SCH (14:30)
[2022-10-08] MEDS: ***HM***(Prochlorperazine Maleate 10 MG) PO SCH (14:35)
[2022-10-08] MEDS: Vitamin B Complex/Vit C/Folic Acid PO SCH (14:38)
[2022-10-08 14:42] LABS: INR 1.68 (0.85-1.15); PROTHROMBIN TIME 17.8 SEC (9.6-11.6)
[2022-10-08 14:44] LABS: PARTIAL THROMBOPLASTIN TIME 67.7 SEC (26.3-35.5)
[2022-10-08 14:48] LABS: HEMOGLOBIN A1C 4.7 % (4.0-6.0)
[2022-10-08 15:21] LABS: CRP QUANTITATIVE < 2.00 mg/L (0.00-9.0)
[2022-10-08] MEDS ORDERED: SODIUM CHLORIDE 3% FOR INHALATION 4 ML/AMP VIAL.NEB IH ONE ×2 (15:44→18:24)
[2022-10-08] MEDS: DICYCLOMINE HCL 20 MG TAB PO SCH ×2 (15:52→22:48)
[2022-10-08] MEDS ORDERED: HYDRALAZINE 20MG/ML VIAL IV PRN (16:30)
[2022-10-08] MEDS: BUDESONIDE 0.5 MG/2 ML INH IH SCH (18:52)
[2022-10-08] MEDS ORDERED: HEPARIN 5,000 UNIT VIAL IV SCH (20:00)
[2022-10-08] MEDS: PREDNISONE 1 MG TAB PO SCH (21:00)
[2022-10-08] MEDS ORDERED: LEVETIRACETAM 250 MG TABLET PO SCH (21:00)
[2022-10-08] MEDS: ZOSYN 3.375GM +NS 50ML IVPB SCH ×2 (21:00→22:48)
[2022-10-08] MEDS ORDERED: ZOSYN 3.375GM +NS 50ML IVPB SCH (21:00)
[2022-10-08] MEDS ORDERED: ACETAMINOPHEN 325 MG TAB PO ONE (22:30)
[2022-10-08] MEDS: LEVETIRACETAM 500 MG TABLET PO SCH (22:48)
[2022-10-08] MEDS: AMLODIPINE 5 MG TAB PO SCH (22:48)
[2022-10-08] MEDS: TEMAZEPAM 30 MG CAP PO SCH (22:49)
[2022-10-08] MEDS: SERTRALINE HCL 50 MG TABLET PO SCH (22:49)
[2022-10-08] MEDS: ATORVASTATIN 10 MG TABLET PO SCH (22:49)
[2022-10-08] MEDS: WARFARIN SODIUM 1 MG TAB PO SCH (23:40)
[2022-10-09] MEDS ORDERED: ACETAMINOPHEN 500 MG TABLET PO PRN
[2022-10-09 02:27] LABS: HEPATITIS B SURFACE ANTIGEN Non-Reactive (Nonreactive)
[2022-10-09] MEDS: DICYCLOMINE HCL 20 MG TAB PO SCH ×4 (02:30→21:04)
[2022-10-09 04:00] VITALS: BP 178/100
[2022-10-09 05:29] LABS: INR 2.02 (0.85-1.15); PROTHROMBIN TIME 21.2 SEC (9.6-11.6)
[2022-10-09 05:34] LABS: BASOPHILS % (AUTO) 0.4 % (0.0-5.0); EOSINOPHILS % (AUTO) 4.5 % (0.0-8.0); HEMATOCRIT 30.2 % (36-48); LYMPHOCYTES % (AUTO) 11.9 % (21.0-51.0); MEAN CORPUSCULAR HEMOGLOBIN 35.8 pg (27.0-33.0); MEAN CORPUSCULAR HGB CONC 32.1 g/dL (32.0-36.0); MEAN CORPUSCULAR VOLUME 111.4 fL (79-99); MONOCYTES % (AUTO) 8.9 % (3.0-13.0); NEUTROPHILS % (AUTO) 73.9 % (40.0-77.0); PLATELET COUNT (AUTO) 30 K/uL (130-400); RED BLOOD CELL COUNT(AUTO) 2.71 MIL/uL (4.00-5.50); RED CELL DISTRIBUTION WIDTH 14.8 % (11.0-15.5); WHITE BLOOD COUNT (AUTO) 5.3 K/uL (4.8-10.8)
[2022-10-09 05:49] LABS: ALBUMIN 3.4 g/dL (3.5-5.0); CRP QUANTITATIVE 6.1 mg/L (0.00-9.0); PHOSPHORUS 5.7 mg/dL (2.5-4.9); POTASSIUM 4.1 mmol/L (3.5-5.1); TOTAL PROTEIN, SERUM 6.2 g/dL (6.0-8.3)
[2022-10-09] MEDS: BUDESONIDE 0.5 MG/2 ML INH IH SCH ×2 (06:45→18:52)
[2022-10-09] MEDS: PANTOPRAZOLE 40 MG TAB DR PO SCH (06:49)
[2022-10-09 08:00] VITALS: BP 166/92
[2022-10-09 08:28] LABS: HEMATOCRIT 30.4 % (36-48); MEAN CORPUSCULAR HEMOGLOBIN 35.8 pg (27.0-33.0); MEAN CORPUSCULAR HGB CONC 32.2 g/dL (32.0-36.0); MEAN CORPUSCULAR VOLUME 110.9 fL (79-99); PLATELET COUNT (AUTO) 29 K/uL (130-400); RED BLOOD CELL COUNT(AUTO) 2.74 MIL/uL (4.00-5.50); RED CELL DISTRIBUTION WIDTH 14.9 % (11.0-15.5); WHITE BLOOD COUNT (AUTO) 5.2 K/uL (4.8-10.8)
[2022-10-09] MEDS: ***HM***(Prochlorperazine Maleate 10 MG) PO SCH (09:00)
[2022-10-09] MEDS ORDERED: ALLOPURINOL 100 MG TABLET PO SCH (09:00)
[2022-10-09] MEDS ORDERED: CLOPIDOGREL 75MG TAB PO SCH (09:00)
[2022-10-09] MEDS: Vitamin B Complex/Vit C/Folic Acid PO SCH (10:24)
[2022-10-09] MEDS: ZOSYN 3.375GM +NS 50ML IVPB SCH (10:24)
[2022-10-09] MEDS: ENALAPRIL MALEATE 10 MG TABLET PO SCH (10:25)
[2022-10-09] MEDS: METOPROLOL SUCCINATE 50 MG TAB.SR.24H PO SCH (10:25)
[2022-10-09] MEDS: LEVETIRACETAM 500 MG TABLET PO SCH ×2 (10:25→20:59)
[2022-10-09 10:26] LABS: EOSINOPHILS % (MANUAL) 6 % (1-6); LYMPHOCYTES % (MANUAL) 14 % (22-44); MAN.DIFF COMMENT-IMPRESSION MANUAL DIFFERENTIAL; MONOCYTES % (MANUAL) 7 % (2-9); PLATELET MORPHOLOGY COMMENT MARKED DECREASE; SEGMENTED NEUTROPHILS % 73 % (40-70)
[2022-10-09 12:00] VITALS: BP 184/108
[2022-10-09 14:40] LABS: PLATELET FUNCTION ANALYSIS ADP > 300 SEC (62-100); PLATELET FUNCTION ANALYSIS EPI > 214 SEC (55-192)
[2022-10-09 14:42] LABS: HEMATOCRIT 30.4 % (36-48); PLATELET COUNT (AUTO) 33 K/uL (130-400)
[2022-10-09 16:00] VITALS: BP 161/95
[2022-10-09] MEDS: WARFARIN SODIUM 1 MG TAB PO SCH (16:00)
[2022-10-09 17:22] LABS: BASOPHILS % (AUTO) 0.4 % (0.0-5.0); HEMATOCRIT 32.5 % (36-48); LYMPHOCYTES % (AUTO) 16.4 % (21.0-51.0); MEAN CORPUSCULAR HEMOGLOBIN 36.1 pg (27.0-33.0); MEAN CORPUSCULAR HGB CONC 32.6 g/dL (32.0-36.0); MEAN CORPUSCULAR VOLUME 110.5 fL (79-99); MONOCYTES % (AUTO) 9.2 % (3.0-13.0); NEUTROPHILS % (AUTO) 69.7 % (40.0-77.0); PLATELET COUNT (AUTO) 36 K/uL (130-400); RED BLOOD CELL COUNT(AUTO) 2.94 MIL/uL (4.00-5.50); RED CELL DISTRIBUTION WIDTH 14.8 % (11.0-15.5)
[2022-10-09 20:00] VITALS: BP 168/92
[2022-10-09] MEDS: AMLODIPINE 5 MG TAB PO SCH (20:59)
[2022-10-09] MEDS: ATORVASTATIN 10 MG TABLET PO SCH (20:59)
[2022-10-09] MEDS: SERTRALINE HCL 50 MG TABLET PO SCH (20:59)
[2022-10-09] MEDS: PREDNISONE 1 MG TAB PO SCH (20:59)
[2022-10-09] MEDS: TEMAZEPAM 30 MG CAP PO SCH (21:07)
[2022-10-09 21:50] VITALS: BP 163/80
[2022-10-09 22:17] LABS: BASOPHILS % (AUTO) 0.3 % (0.0-5.0); EOSINOPHILS % (AUTO) 4.3 % (0.0-8.0); LYMPHOCYTES % (AUTO) 10.9 % (21.0-51.0); MEAN CORPUSCULAR HEMOGLOBIN 36.2 pg (27.0-33.0); MEAN CORPUSCULAR HGB CONC 32.1 g/dL (32.0-36.0); MEAN CORPUSCULAR VOLUME 112.8 fL (79-99); MONOCYTES % (AUTO) 8.4 % (3.0-13.0); NEUTROPHILS % (AUTO) 75.9 % (40.0-77.0); PLATELET COUNT (AUTO) 71 K/uL (130-400); RED BLOOD CELL COUNT(AUTO) 2.57 MIL/uL (4.00-5.50); RED CELL DISTRIBUTION WIDTH 14.9 % (11.0-15.5); WHITE BLOOD COUNT (AUTO) 6.5 K/uL (4.8-10.8)
[2022-10-10] VITALS: BP 158/83
[2022-10-10] MEDS: DICYCLOMINE HCL 20 MG TAB PO SCH ×3 (03:38→15:14)
[2022-10-10 04:00] VITALS: BP 177/84
[2022-10-10 05:30] VITALS: BP 157/80
[2022-10-10 05:55] LABS: BASOPHILS % (AUTO) 0.3 % (0.0-5.0); EOSINOPHILS % (AUTO) 3.7 % (0.0-8.0); HEMATOCRIT 30.5 % (36-48); LYMPHOCYTES % (AUTO) 14.3 % (21.0-51.0); MEAN CORPUSCULAR HEMOGLOBIN 36.1 pg (27.0-33.0); MEAN CORPUSCULAR HGB CONC 33.1 g/dL (32.0-36.0); MEAN CORPUSCULAR VOLUME 108.9 fL (79-99); MONOCYTES % (AUTO) 7.6 % (3.0-13.0); NEUTROPHILS % (AUTO) 73.8 % (40.0-77.0); PLATELET COUNT (AUTO) 78 K/uL (130-400); RED CELL DISTRIBUTION WIDTH 14.6 % (11.0-15.5); WHITE BLOOD COUNT (AUTO) 6.4 K/uL (4.8-10.8)
[2022-10-10 06:06] LABS: INR 1.95 (0.85-1.15); PROTHROMBIN TIME 20.5 SEC (9.6-11.6)
[2022-10-10 06:09] LABS: CREATININE 7.7 mg/dL (0.5-1.5); PHOSPHORUS 7.7 mg/dL (2.5-4.9)
[2022-10-10] MEDS: BUDESONIDE 0.5 MG/2 ML INH IH SCH (06:40)
[2022-10-10 08:00] VITALS: BP 177/86
[2022-10-10] MEDS: LEVETIRACETAM 500 MG TABLET PO SCH (08:19)
[2022-10-10] MEDS: METOPROLOL SUCCINATE 50 MG TAB.SR.24H PO SCH (08:19)
[2022-10-10] MEDS: ENALAPRIL MALEATE 10 MG TABLET PO SCH (08:19)
[2022-10-10] MEDS: PANTOPRAZOLE 40 MG TAB DR PO SCH (08:20)
[2022-10-10] MEDS: ***HM***(Prochlorperazine Maleate 10 MG) PO SCH (08:20)
[2022-10-10] MEDS: Vitamin B Complex/Vit C/Folic Acid PO SCH (08:20)
[2022-10-10 11:54] VITALS: BP 169/71
[2022-10-10] MEDS: WARFARIN SODIUM 1 MG TAB PO SCH (15:14)
[2022-10-10 15:56] VITALS: BP 179/54
[2022-10-10] MEDS ORDERED: AMOX-426 PO (16:17)
[2022-10-10] MEDS ORDERED: PANT40TA PO (16:17)
== END 2022-10-10 18:30 | disposition home or self-care (01) | DRG 193 ==
LOC: EDH 10:57 → EDHIP 14:04 → 4BH 16:41
PROVIDERS: ADMIT Internal Medicine; ATTEND Internal Medicine
PROC: 5A1D70Z Performance of Urinary Filtration, Intermittent, Less than 6 Hours Per Day (ICD-10-PCS; principal; 2022-10-08)
PROC: 30233R1 Transfusion of Nonautologous Platelets into Peripheral Vein, Percutaneous Approach (ICD-10-PCS; 2022-10-09)
DX: J18.9 Pneumonia, unspecified organism (principal); J96.01 Acute respiratory failure with hypoxia; N18.6 End stage renal disease; J81.1 Chronic pulmonary edema; D84.821 Immunodeficiency due to drugs; D68.62 Lupus anticoagulant syndrome; I12.0 Hypertensive chronic kidney disease with stage 5 chronic kidney disease or end stage renal disease; I69.354 Hemiplegia and hemiparesis following cerebral infarction affecting left non-dominant side; R55 Syncope and collapse; I25.5 Ischemic cardiomyopathy; E11.22 Type 2 diabetes mellitus with diabetic chronic kidney disease; D53.9 Nutritional anemia, unspecified; D63.1 Anemia in chronic kidney disease; E05.20 Thyrotoxicosis with toxic multinodular goiter without thyrotoxic crisis or storm; E66.9 Obesity, unspecified; E78.5 Hyperlipidemia, unspecified; G40.909 Epilepsy, unspecified, not intractable, without status epilepticus; G89.29 Other chronic pain; I25.10 Atherosclerotic heart disease of native coronary artery without angina pectoris; I35.0 Nonrheumatic aortic (valve) stenosis; Z79.51 Long term (current) use of inhaled steroids; Z79.899 Other long term (current) drug therapy; Z90.710 Acquired absence of both cervix and uterus; Z95.2 Presence of prosthetic heart valve; Z95.1 Presence of aortocoronary bypass graft; Z79.52 Long term (current) use of systemic steroids; Z95.5 Presence of coronary angioplasty implant and graft; Z95.810 Presence of automatic (implantable) cardiac defibrillator; Z99.2 Dependence on renal dialysis; Z79.01 Long term (current) use of anticoagulants; Z79.02 Long term (current) use of antithrombotics/antiplatelets
CPT/HCPCS: 36415; 36430; 70450; 71045; 76536; 80048; 80053; 80177; 83036; 83605; 83735; 84100; 84145; 84439; 84443; 84445; 84481; 84484; 85007; 85025; 85576; 85610; 85651; 85730; 86022; 86140; 86704; 86706; 86850; 86870; 86900; 86901; 86905; 86922; 87040; 87071; 87205; 87340; 90935; 93005; 93970; 94640; 94664; 96365; 96366; 96375; G0378; J0360; J1644; J2543; J7512; P9034

== ENCOUNTER 2023-03-17 05:58 | Emergency (ER) | payer MEDICARE ==
[~2023-03-17] VITALS: Ht 165.1 cm; Wt 83.9 kg
[~2023-03-17 05:58] MED LIST changes: +AMOX-426 PO; +ENAL-91 PO; -ENAL20TA18 PO; +PANT40TA PO; +PROC-3 PO; -PROC10TA13 PO
[2023-03-17 05:59] VITALS: BP 180/76; PULSE 70; RESP 14
[2023-03-17 06:22] LABS: BASOPHILS # (AUTO) 0.04 K/uL (0.00-0.20); BASOPHILS % (AUTO) 0.6 % (0.0-5.0); EOSINOPHILS # (AUTO) 0.39 K/uL (0.00-0.70); EOSINOPHILS % (AUTO) 5.7 % (0.0-8.0); HEMATOCRIT 33.9 % (36-48); IMMATURE GRANULOCYTE ABSOLUTE 0.03 K/uL (0-1); LYMPHOCYTES # (AUTO) 0.7 K/uL (1.0-4.8); MEAN CORPUSCULAR HEMOGLOBIN 34.5 pg (27.0-33.0); MEAN CORPUSCULAR VOLUME 104.3 fL (79-99); MONOCYTES # (AUTO) 0.5 K/uL (0.1-1.0); MONOCYTES % (AUTO) 7.6 % (3.0-13.0); NEUTROPHILS # (AUTO) 5.1 K/uL (1.8-7.7); NEUTROPHILS % (AUTO) 75.7 % (40.0-77.0); PLATELET COUNT (AUTO) 167 K/uL (130-400); RED BLOOD CELL COUNT(AUTO) 3.25 MIL/uL (4.00-5.50); RED CELL DISTRIBUTION WIDTH 15.8 % (11.0-15.5); WHITE BLOOD COUNT (AUTO) 6.8 K/uL (4.8-10.8)
[2023-03-17 06:35] LABS: INR 2.43 (0.85-1.15); PROTHROMBIN TIME 26.6 SEC (9.6-11.6)
[2023-03-17 06:36] LABS: PARTIAL THROMBOPLASTIN TIME 62.8 SEC (26.3-35.5)
[2023-03-17 07:39] LABS: ALBUMIN 3.9 g/dL (3.5-5.0); BILIRUBIN,TOTAL 1.5 mg/dL (0.2-1.0); CREATININE 6.6 mg/dL (0.5-1.5); POTASSIUM 4.7 mmol/L (3.5-5.1); TOTAL PROTEIN, SERUM 7.1 g/dL (6.0-8.3)
== END 2023-03-17 10:21 | disposition home or self-care (01) ==
LOC: EDH 05:58
DX: S00.83XA Contusion of other part of head, initial encounter (principal); S20.224A Contusion of middle back wall of thorax, initial encounter; S00.532A Contusion of oral cavity, initial encounter; N63.10 Unspecified lump in the right breast, unspecified quadrant; I12.0 Hypertensive chronic kidney disease with stage 5 chronic kidney disease or end stage renal disease; N18.6 End stage renal disease; Z79.01 Long term (current) use of anticoagulants; Z91.018 Allergy to other foods; Z88.2 Allergy status to sulfonamides; W06.XXXA Fall from bed, initial encounter; Y93.89 Activity, other specified; Y92.89 Other specified places as the place of occurrence of the external cause; Y99.8 Other external cause status
CPT/HCPCS: 36415; 70450; 70486; 71045; 72125; 80053; 83605; 83690; 85025; 85610; 85730

== ENCOUNTER → 2023-05-03 | Outpatient (CLI) | payer MEDICARE | END | disposition home or self-care (01) | LOC: SHCH 08:55 | PROVIDERS: ATTEND Internal Medicine Cardiovascular Disease | DX: I25.5 Ischemic cardiomyopathy (principal) | CPT/HCPCS: 93975 ==

== ENCOUNTER → 2023-07-17 | Outpatient (CLI) | payer MEDICARE ==
[~2023-07-17] MED LIST changes: +IOHEXOL-350 75 ML VIAL IV ONE
== END | disposition home or self-care (01) ==
LOC: RAH 11:00
PROVIDERS: ATTEND Internal Medicine Hematology & Oncology
DX: K42.9 Umbilical hernia without obstruction or gangrene (principal); N28.1 Cyst of kidney, acquired; M47.815 Spondylosis without myelopathy or radiculopathy, thoracolumbar region; R60.1 Generalized edema; I70.0 Atherosclerosis of aorta; I25.10 Atherosclerotic heart disease of native coronary artery without angina pectoris; Z90.49 Acquired absence of other specified parts of digestive tract
CPT/HCPCS: 74175; Q9967

== ENCOUNTER → 2024-01-26 | Outpatient (CLI) | payer MEDICARE ==
[~2024-01-26] MED LIST changes: -IOHEXOL-350 75 ML VIAL IV ONE; -ROSU5TAB12 PO; +ROSU5TAB43 PO
[2024-01-26 12:49] LABS: CREATININE 5.9 mg/dL (0.5-1.0); POTASSIUM 5.3 mmol/L (3.5-5.1)
== END | disposition home or self-care (01) ==
LOC: LAB 10:21
PROVIDERS: ATTEND Internal Medicine Cardiovascular Disease
DX: I10 Essential (primary) hypertension (principal)
CPT/HCPCS: 36415; 80048

== ENCOUNTER → 2024-02-05 | Outpatient (CLI) | payer MEDICARE ==
[~2024-02-05] MED LIST changes: +IOHEXOL 350 MG/ML 100ML INFUS..BTL IV ONE
== END | disposition home or self-care (01) ==
LOC: RAH 07:53
PROVIDERS: ATTEND Internal Medicine Cardiovascular Disease
DX: Z13.6 Encounter for screening for cardiovascular disorders (principal); I25.10 Atherosclerotic heart disease of native coronary artery without angina pectoris
CPT/HCPCS: 75574; Q9967

== ENCOUNTER 2024-03-18 08:38 | Day surgery (SDC) | payer MEDICARE ==
[2024-03-15 11:47] LABS: BASOPHILS # (AUTO) 0.02 K/uL (0.00-0.20); BASOPHILS % (AUTO) 0.4 % (0.0-5.0); EOSINOPHILS # (AUTO) 0.45 K/uL (0.00-0.70); EOSINOPHILS % (AUTO) 8.2 % (0.0-8.0); HEMATOCRIT 35.3 % (36-48); IMMATURE GRANULOCYTE ABSOLUTE 0.01 K/uL (0-1); LYMPHOCYTES # (AUTO) 0.7 K/uL (1.0-4.8); LYMPHOCYTES % (AUTO) 13.2 % (21.0-51.0); MEAN CORPUSCULAR HEMOGLOBIN 34.4 pg (27.0-33.0); MEAN CORPUSCULAR HGB CONC 33.7 g/dL (32.0-36.0); MONOCYTES # (AUTO) 0.6 K/uL (0.1-1.0); MONOCYTES % (AUTO) 10.6 % (3.0-13.0); NEUTROPHILS # (AUTO) 3.7 K/uL (1.8-7.7); NEUTROPHILS % (AUTO) 67.4 % (40.0-77.0); PLATELET COUNT (AUTO) 89 K/uL (130-400); RED BLOOD CELL COUNT(AUTO) 3.46 MIL/uL (4.00-5.50); RED CELL DISTRIBUTION WIDTH 14.9 % (11.0-15.5); WHITE BLOOD COUNT (AUTO) 5.5 K/uL (4.8-10.8)
[2024-03-15 12:04] LABS: INR 1.23 (0.85-1.15); PROTHROMBIN TIME 13.1 SEC (9.6-11.6)
[2024-03-15 12:05] LABS: PARTIAL THROMBOPLASTIN TIME 48.7 SEC (26.3-35.5)
[2024-03-15 12:06] LABS: B-TYPE NATRIURETIC PEPTIDE 2350 pg/mL (0-100)
[2024-03-15 12:23] VITALS: BP 178/82; PULSE 50; RESP 18
[2024-03-15 14:07] LABS: CREATININE 5.2 mg/dL (0.5-1.0); POTASSIUM 5.1 mmol/L (3.5-5.1)
[2024-03-18] VITALS (11 sets, daily range): BP systolic 124–199; BP diastolic 45–101; PULSE 47–55; RESP 11–18
[~2024-03-18] VITALS: Ht 165.1 cm; Wt 64.5 kg
[~2024-03-18 08:38] MED LIST changes: -AMLO-257 PO; -AMOX-426 PO; -BENZ-226 PO; +CHOL100046 PO; +CLON0.1T PO; -CLOP-31 PO; +CYCL30DR OP; -DICY20TA3 PO; +DOCU100C33 PO; +ELTR50TA PO; -HYDR-4060 PO; +HYDR25TA67 PO; -IOHEXOL 350 MG/ML 100ML INFUS..BTL IV ONE; +LOSA100T59 PO; +MELA5TAB66 PO; +ONDA-243 PO; -PANT40TA PO; -PROC-3 PO; -SERT-439 PO; +SUCR500T PO; -VITAMIN B
[2024-03-18] MEDS: 0.9%NACL 1000ML 1,000 ML IV ONE (09:38)
[2024-03-18] MEDS ORDERED: LIDOCAINE HCL 400MG/20ML VIAL ONE (10:31)
[2024-03-18] MEDS ORDERED: SODIUM BICARB 50MEQ 50ML VIAL 50 ML ONE (10:31)
[2024-03-18] MEDS ORDERED: NITROGLYCERIN 50MG VIAL ONE (10:31)
[2024-03-18] MEDS ORDERED: IOHEXOL 350 MG/ML 100ML INFUS..BTL IV ONE (10:31)
[2024-03-18] MEDS ORDERED: MEPERIDINE-PF 25 MG/ML SYG ONE ×2 (10:41→11:03)
[2024-03-18] MEDS ORDERED: MIDAZOLAM HCL 1 MG/ML 2ML VIAL ONE ×2 (10:41→11:03)
[2024-03-18] MEDS ORDERED: HYDRALAZINE 20MG/ML VIAL ONE ×2 (11:07→11:36)
[2024-03-18] MEDS: WARFARIN SODIUM 5 MG TAB PO ONE (12:45)
== END 2024-03-18 16:40 | disposition home or self-care (01) ==
LOC: DAH 08:38
PROVIDERS: ATTEND Internal Medicine Cardiovascular Disease
DX: I25.118 Atherosclerotic heart disease of native coronary artery with other forms of angina pectoris (principal); Z95.1 Presence of aortocoronary bypass graft; N18.6 End stage renal disease; Z99.2 Dependence on renal dialysis; Z95.810 Presence of automatic (implantable) cardiac defibrillator; Z86.73 Personal history of transient ischemic attack (TIA), and cerebral infarction without residual deficits; Z88.1 Allergy status to other antibiotic agents; Z91.018 Allergy to other foods; E66.9 Obesity, unspecified; Z79.01 Long term (current) use of anticoagulants; Z95.5 Presence of coronary angioplasty implant and graft; Z79.899 Other long term (current) drug therapy; Z90.49 Acquired absence of other specified parts of digestive tract; Z90.710 Acquired absence of both cervix and uterus
CPT/HCPCS: 80048; 83880; 85025; 85610; 85730; 36415; 71045; 93005; 93454; C1894; C1760; Q9965; J3490 ×3; J7030; J0360 ×2; J2250 ×2; J2175 ×2; J1644; Q9967; A4215; A4222; A4221; A4663; A4216; A4606; A4223 ×3; 99156; 99157

== ENCOUNTER → 2024-05-06 | Outpatient (CLI) | payer MEDICARE | END | disposition home or self-care (01) | LOC: RAH 13:08 | PROVIDERS: ATTEND Internal Medicine Cardiovascular Disease | DX: I72.4 Aneurysm of artery of lower extremity (principal); I70.90 Unspecified atherosclerosis | CPT/HCPCS: 93926 ==